=== PATIENT | female | born 1940 | race Two or more races ===

== ENCOUNTER 2019-09-01 09:58 | Emergency (ER) | payer OTHER ==
[~2019-09-01] VITALS: Ht 157.5 cm; Wt 57.6 kg
[2019-09-01] MEDS ORDERED: LANTUS SOL100 UNIT/1 (11:24)
[2019-09-01] MEDS ORDERED: HUMALOG100 UNIT/1 (11:24)
[2019-09-01] MEDS ORDERED: FORTAMET500 MG (11:25)
[2019-09-01] MEDS ORDERED: CLONAZEPAM2 MG (11:26)
== END 2019-09-01 15:30 | disposition home or self-care (01) ==
LOC: ER 09:58
DX: H92.02 Otalgia, left ear (principal)

== ENCOUNTER 2019-10-10 08:22 | Emergency (ER) | payer OTHER ==
[~2019-10-10] VITALS: Ht 157.5 cm; Wt 54.4 kg
[~2019-10-10 08:22] MED LIST: CLONAZEPAM2 MG; FORTAMET500 MG; HUMALOG100 UNIT/1; LANTUS SOL100 UNIT/1
== END 2019-10-10 08:51 | disposition home or self-care (01) ==
LOC: ER 08:22
DX: R21 Rash and other nonspecific skin eruption (principal)